=== PATIENT | female | born 1985 | race Hispanic/Latino ===

== ENCOUNTER 2017-08-14 18:37 | Emergency (ER) | payer OTHER ==
[2017-08-14 19:34] LABS: Band 4 % (5-11); Hemoglobin 11.5 g/dL (12.0-16.0); Lymphocytes 37 % (21-51); MDiff Complete? YES; Mean Corpuscular Hemoglobin 26.7 pg (27.0-31.0); Mean Corpuscular Volume 78.6 fl (81.0-99.0); Mean Platelet Volume 7.5 fL (7.4-10.4); Monocytes 7 % (0-10); Neutrophil 40 % (42-75); PLT Morphology Comment Appears Adequate; Platelet Count 301 thou/uL (130-400); RBC Distribution Width 15.9 % (11.5-14.5); Reactive Lymphocytes 12 % (0-10); Red Blood Cell (RBC) Count 4.31 mill/uL (4.20-5.40); White Blood Cell (WBC) Count 8.9 thou/uL (4.8-10.8)
[2017-08-14 19:37] LABS: Bilirubin Negative (Negative); Blood, Urine Negative (Negative); Clarity Clear (Clear); Glucose, Urine (Dipstick) Negative (Negative); Leukocyte Large (Negative); Nitrite Negative (Negative); Protein, Urine (Dipstick) Negative (Neg-Trace); Specific Gravity, Urine 1.015 (1.005-1.030); Urobilinogen 0.2 mg/dL (0.2-1.0)
[2017-08-14 19:39] LABS: RBC/HPF 0-3 HPF (0-3)
[2017-08-14 19:39] LABS: ALT (SGPT) 11 U/L (8-55); AST (SGOT) 15 U/L (5-34); Albumin 3.7 g/dL (3.5-5.0); Alkaline Phosphatase 58 U/L (40-150); Anion Gap 15 mmol/L (10-20); BUN (Urea Nitrogen) 5 mg/dL (7.0-18.7); Bilirubin, Total 0.4 mg/dL (0.2-1.2); Calc. Creatinine Clearance 0 mL/min (70-130); Calcium 9.6 mg/dL (7.8-10.44); Carbon Dioxide 23 mmol/L (22-29); Chloride 103 mmol/L (98-107); Estimated GFR-MDRD 88; Globulin 3.5 g/dL (2.4-3.5); Glucose 102 mg/dL (70-105); Potassium 3.6 mmol/L (3.5-5.1); Protein, Total 7.2 g/dL (6.0-8.3); Sodium 137 mmol/L (136-145)
[2017-08-14 19:40] LABS: Bacteria/HPF 2+ HPF (None Seen); Crystals/HPF 1+ AMORPH URATES HPF (Negative)
[2017-08-14] MEDS ORDERED: Acetaminophen 500 MG TAB ONE (19:41)
== END 2017-08-14 20:26 | disposition home or self-care (01) ==
LOC: SCSER 18:37
DX: O10.919 Unspecified pre-existing hypertension complicating pregnancy, unspecified trimester (principal); O99.352 Diseases of the nervous system complicating pregnancy, second trimester; G43.909 Migraine, unspecified, not intractable, without status migrainosus; O99.012 Anemia complicating pregnancy, second trimester; D57.3 Sickle-cell trait; Z3A.15 15 weeks gestation of pregnancy
CPT/HCPCS: 36415; 80053; 81003; 81015; 85025; 99284

== ENCOUNTER 2017-11-13 18:46 | Inpatient (IN) | payer OTHER ==
[2017-11-13 19:49] VITALS: BMI 26.9
[2017-11-13 21:03] LABS: Bilirubin Negative (Negative); Blood, Urine Moderate (Negative); Clarity CLEAR (Clear); Glucose, Urine (Dipstick) Negative (Negative); Leukocyte Negative (Negative); Nitrite Negative (Negative); Protein, Urine (Dipstick) 30 mg/dL (Neg-Trace)
[2017-11-13 21:05] LABS: Bacteria/HPF None Seen HPF (None Seen); Hyaline Casts/LPF 0-3 HYALINE CAST LPF (0-3 Hyaline); Pathc Cast-AUWi Flag 0.43 (0-2.49); Squamous Epithelial 0-3 HPF (0-3)
[2017-11-13] MEDS ORDERED: Lactated Ringer's 1,000 ML IV SCH (21:15)
--- NOTE | 2017-11-13 21:17 | PDOC.LDHP ---
Labor and Delivery H&P Chief complaint: other (Fever and UTI HX) HPI: CC: fever and recent UTI HX being RX with macrobid 32 yo at 28 weeks with fever and recent UTI DX. Saw Dr bagley yeterday with DX of UTI and given macrobid. She was concerned that the tDap was giving her fever. Good FM, No LOF, No VB Current gestational age (weeks): 28 Grav: 4 Para: 2 Current complications: none Abnormal US findings: No Current medications: pre-sonu vitamins, other (Macrobid) Previous surgical history: other (Gallbladder) Allergies/Adverse Reactions: Allergies Allergy/AdvReac Type Severity Reaction Status Date / Time promethazine HCl Allergy Verified 11/13/17 19:40 [From Phenergan] Social history: none - Physical Exam Vital signs reviewed and normal: yes General: NAD Heart: RRR Lungs: CTAB Abdomen: gravid Extremeties: no edema FHT: category 1 [place] contractions every: FHTS are tachy at 180s but no decels, no ctx - Assessment Fever and recent UTI HX, with UA "dirty", compatible for DX of pyelo in . Direct admit to Dr Bagley. - Plan Plan: observation in L&D (WE will admit for IV antibiotics but keep in L&D until tachycardia resolves. I have ordered urine and blood cultures, baseline CXR. IV Roscephin pending. Omar covering for Yudi.)
[2017-11-13] MEDS ORDERED: Acetaminophen 500 MG TAB PO SCH (21:30)
[2017-11-13 21:47] LABS: #Lymphocytes 1.6 thou/uL (1.20-3.40); #Monocytes 0.8 thou/uL (0.11-0.59); #Neutrophils 13.2 thou/uL (1.40-6.50); %Basophils 0.2 % (0.0-1.0); %Lymphocytes 10.2 % (21.0-51.0); %Monocytes 4.9 % (0.0-10.0); %Neutrophils 84.7 % (42.0-75.0); Hemoglobin 11.5 g/dL (12.0-16.0); Mean Corpuscular HGB CONC 35.3 g/dL (32.0-36.0); Mean Corpuscular Hemoglobin 30.8 pg (27.0-31.0); Mean Corpuscular Volume 87.4 fL (78.0-98.0); Platelet Count 264 thou/uL (130-400); RBC Distribution Width 13.2 % (11.5-14.5); Red Blood Cell (RBC) Count 3.73 mill/uL (4.20-5.40); White Blood Cell (WBC) Count 15.6 thou/uL (4.8-10.8)
[2017-11-13] MEDS: cefTRIAXone\\ROCEPHIN 2 GM in Sodium Chloride 0.9% 100 ML IVPB SCH (22:00)
[2017-11-13 22:09] LABS: ALT (SGPT) 11 U/L (8-55); AST (SGOT) 21 U/L (5-34); Albumin 3.3 g/dL (3.5-5.0); Alkaline Phosphatase 95 U/L (40-150); Anion Gap 13 mmol/L (10-20); BUN (Urea Nitrogen) Less than 4 mg/dL (7.0-18.7); Bilirubin, Total 1.6 mg/dL (0.2-1.2); Calc. Creatinine Clearance 129 mL/min (70-130); Calcium 8.6 mg/dL (7.8-10.44); Carbon Dioxide 21 mmol/L (22-29); Chloride 102 mmol/L (98-107); Estimated GFR-MDRD Greater than 90; Globulin 3.1 g/dL (2.4-3.5); Glucose 111 mg/dL (70-105); Protein, Total 6.4 g/dL (6.0-8.3); Sodium 133 mmol/L (136-145)
[2017-11-13 22:15] LABS: Potassium 2.9 mmol/L (3.5-5.1)
--- NOTE | 2017-11-13 22:35 | PDOC.EVN ---
Event Note - Event Note Event Note: Lab check: K 2.9...will supplement both po and IV
[2017-11-13] MEDS ORDERED: Potassium Chloride 10 MEQ in Premix Bag 1 BAG IVPB SCH (22:45)
[2017-11-13 23:57] LABS: Acetaminophen Less than 6.0 mcg/mL (10.0-30.0); Alcohol Less than 10 mg/dL (Less than 10); Salicylate Less than 8.0 mg/dL (15.0-30.0)
[2017-11-14] MEDS: Acetaminophen/Codeine 30-300mg Tablet PO PRN ×5 (03:13→14:07)
[2017-11-14 04:02] LABS: Lactic Acid 1.6 mmol/L (0.5-2.2)
[2017-11-14] MEDS: Lactated Ringer's 1,000 ML IV SCH ×3 (05:00→14:07)
[2017-11-14 08:26] LABS: #Lymphocytes 3.4 thou/uL (1.20-3.40); #Monocytes 1.4 thou/uL (0.11-0.59); #Neutrophils 9.4 thou/uL (1.40-6.50); %Basophils 0.1 % (0.0-1.0); %Eosinophils 0.1 % (0.0-10.0); %Lymphocytes 24.1 % (21.0-51.0); %Monocytes 9.8 % (0.0-10.0); %Neutrophils 65.9 % (42.0-75.0); Hemoglobin 10.2 g/dL (12.0-16.0); Mean Corpuscular HGB CONC 35.5 g/dL (32.0-36.0); Mean Corpuscular Hemoglobin 31.1 pg (27.0-31.0); Mean Corpuscular Volume 87.7 fL (78.0-98.0); Mean Platelet Volume 7.1 fL (7.4-10.4); Platelet Count 232 thou/uL (130-400); RBC Distribution Width 13.2 % (11.5-14.5); Red Blood Cell (RBC) Count 3.29 mill/uL (4.20-5.40); White Blood Cell (WBC) Count 14.3 thou/uL (4.8-10.8)
[2017-11-14] MEDS: Potassium Chloride 20 MEQ TAB PO SCH ×2 (08:30→16:50)
[2017-11-14 08:37] LABS: Anion Gap 10 mmol/L (10-20); BUN (Urea Nitrogen) Less than 4 mg/dL (7.0-18.7); Calc. Creatinine Clearance 159 mL/min (70-130); Calcium 8.3 mg/dL (7.8-10.44); Carbon Dioxide 22 mmol/L (22-29); Chloride 105 mmol/L (98-107); Estimated GFR-MDRD Greater than 90; Glucose 96 mg/dL (70-105); Sodium 134 mmol/L (136-145)
[2017-11-14 08:44] LABS: Potassium 2.8 mmol/L (3.5-5.1)
--- NOTE | 2017-11-14 09:11 | RAD ---
RADIOGRAPH CHEST 1 VIEW: HISTORY: 32-year-old female with fever. FINDINGS: There are no air space densities, pulmonary edema, pneumothorax, or cardiomegaly. The lateral costop hrenic angles are sharp. IMPRESSION: No acute cardiopulmonary findings. kartik POS: [facility]
[2017-11-14] MEDS: Potassium Chloride 40 MEQ in Sodium Chloride 0.45% 1,000 ML IV SCH (16:50)
[2017-11-14] MEDS: HYDROcodone/Acetaminophen 5/325 mg Tablet PO PRN (18:44)
[2017-11-14] MEDS: cefTRIAXone\\ROCEPHIN 2 GM in Sodium Chloride 0.9% 100 ML IVPB SCH (21:36)
[2017-11-15] MEDS: HYDROcodone/Acetaminophen 5/325 mg Tablet PO PRN (00:07)
[2017-11-15] MEDS: Lactated Ringer's 1,000 ML IV SCH ×2 (00:34→14:18)
[2017-11-15] MEDS: Potassium Chloride 40 MEQ in Sodium Chloride 0.45% 1,000 ML IV SCH ×2 (01:26→14:18)
[2017-11-15 05:49] LABS: Anion Gap 9 mmol/L (10-20); BUN (Urea Nitrogen) Less than 4 mg/dL (7.0-18.7); Calc. Creatinine Clearance 171 mL/min (70-130); Carbon Dioxide 21 mmol/L (22-29); Chloride 108 mmol/L (98-107); Estimated GFR-MDRD Greater than 90; Glucose 84 mg/dL (70-105); Potassium 3.9 mmol/L (3.5-5.1); Sodium 134 mmol/L (136-145)
[2017-11-15] MEDS ORDERED: Ibuprofen 800 MG TAB PO PRN (08:20)
[2017-11-15] MEDS ORDERED: Amoxicillin/Potassium Clav 875 MG TAB PO SCH (09:00)
[2017-11-15 12:11] VITALS: BP 114/73; TEMP 97.6
== END 2017-11-15 17:30 | disposition home health service (06) | DRG 775 ==
LOC: L&D/OP 18:46 → L&D 22:17 → 3SW 11-14 10:25
PROVIDERS: ADMIT Obstetrics & Gynecology; ATTEND Obstetrics & Gynecology
DX: O23.43 Unspecified infection of urinary tract in pregnancy, third trimester (principal); Z37.0 Single live birth; Z3A.28 28 weeks gestation of pregnancy; O26.93 Pregnancy related conditions, unspecified, third trimester; E87.6 Hypokalemia; R51 Headache
CPT/HCPCS: 36415; 71045; 80048; 80053; 80307; 81001; 83605; 85025; 87040; 87086; 99285; J0696; J3480; J7050

== ENCOUNTER 2018-01-17 19:28 | Day surgery (SDC) | payer OTHER ==
[2018-01-17 20:14] VITALS: BP 136/84; TEMP 98.7; BMI 29.3
--- NOTE | 2018-01-17 20:44 | PDOC.FPROB ---
FMR OB H&P: HPI - History of Present Illness Chief Complaint: Contractions Indentification: 32 year old History of Present Illness: 32 year at 37.2 wks presents with intermittent contractions and vaginal pressure since this afternoon. She denies vaginal bleeding, vaginal discharge, LoF. She endorses good movement. Primary Care Physician: Yudi FMR OB H&P: Current - Care : 4 Para: 2011 Gestational age: 37.2 wks FMR OB H&P: History - Past Medical History PMH: HTN Migraines Hx of chlamydia - OB History OB History: SAB x1 with D&C cHTN - RN CARE TRANSITION History RN CARE TRANSITION History: D&C - Surgical History Sx History: Cholecystectomy D&C - Social History Social History: Denies alcohol, tobacco, or drug use during . - Family History Family History: Noncontributory FMR OB H&P: Medications - Current Home Medications: Medication Instructions Recorded Confirmed Type Methyldopa 1 tab PO DAILY 11/13/17 01/17/18 History Nitrofurantoin Macrocrystal 100 mg PO DAILY 11/13/17 01/17/18 History [Nitrofurantoin] Allergies/Adverse Reactions: Allergies Allergy/AdvReac Type Severity Reaction Status Date / Time promethazine HCl Allergy Verified 11/13/17 19:40 [From Phenergan] FMR OB H&P: ROS - Review of Systems General: denies: fever/chills, weight/appetite/sleep changes Eyes: denies: vision changes ENT: denies: nasal congestion, sore throat Cardiovascular: denies: chest pain, palpitation, edema Respiratory: denies: cough, congestion, shortness of breath Gastrointestinal: denies: abdominal pain, nausea, vomiting Genitourinary (Female): reports: polyuria, vaginal pain, contractions. denies: dysuria, vaginal discharge, vaginal bleeding Musculoskeletal: denies: pain Hematologic/Lymphatic: denies: prolonged or excessive bleeding Psychological: denies: depression, anxiety FMR OB H&P: Vital Signs - Maternal Vital signs: Vital Signs - First Documented Temp Pulse Resp BP Pulse Ox 98.7 F 86 18 136/84 98 01/17/18 20:09 01/17/18 20:09 01/17/18 20:09 01/17/18 20:01/17/18 20:09 - Heart Tones Baseline: 125 Variability: moderate Acceleration: present Deceleration: absent Category: category 1 [place] contractions every: Irregular FMR OB H&P: Physical Exam - Physical Exam General: NAD, awake, alert and oriented HEENT: normocephalic and atraumatic, MMM, grossly normal vision, grossly normal hearing Heart: pulses present, no edema General: no respiratory distress Abdomen: soft, gravid, non-tender Musculoskeletal: pulses present Neurological: no tremor, no focal deficit Skin: no rash, capillary refill <2 seconds Psychiatric: intact recent and remote memory, good judgement and insight, normal mood and affect FMR OB H&P: A/P - Problem List (1) Intrauterine Status: Acute Code(s): Z34.90 - ENCNTR FOR SUPRVSN OF NORMAL , UNSP, UNSP TRIMESTER Assessment and Plan: 32 year old at 37.2 wks sIUP - Does not appear to be in labor - Cervical check 04/25/3 - Reactive NST - Few, irregular contractions on monitor - No leaking of fluid, vaginal bleeding, or vaginal discharge - d/c home with labor precautions cHTN - Continue home medications - BP 136/84 Hx SAB x1 - s/p D&C Disposition: Stable. D/c home with labor precautions. Discussion: Date/Time: 01/17/182042 This H&P was discussed with Dr. Colin who agrees with the above documentation and plan. Signature: Molly Linares, PGY-2
== END 2018-01-17 20:45 | disposition home health service (06) ==
LOC: L&D/OP 19:28
PROVIDERS: ATTEND Obstetrics & Gynecology
DX: O47.1 False labor at or after 37 completed weeks of gestation (principal); O10.913 Unspecified pre-existing hypertension complicating pregnancy, third trimester; Z3A.37 37 weeks gestation of pregnancy; Z79.899 Other long term (current) drug therapy; Z88.8 Allergy status to other drugs, medicaments and biological substances

== ENCOUNTER 2018-01-26 23:47 | Day surgery (SDC) | payer OTHER ==
[2018-01-27 00:20] VITALS: BMI 29.7
--- NOTE | 2018-01-27 01:19 | PRG ---
DATE OF SERVICE: 01/27/2018 TIME OF SERVICE: 0045 hours. PRESENTING COMPLAINT: Contractions. HISTORY OF PRESENT ILLNESS: Ms. Bloom presents with complaining of contractions. She has an EDC o f 02/07/2018 and placing her at 38 weeks gestation. She reports mostly 4 hours of contractions. No rupture of membranes, no vaginal bleeding, active fetus. 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 SAB x1. Blood type A positive, antibody negative, P ap negative, rubella immune, VDRL nonreactive. Hepatitis B, GC chlamydia negative, group B strep neg ative. Sickle trait positive. PAST MEDICAL HISTORY: Migraines and hypertension outside of . PAST SURGICAL HISTORY: D&C, cholecystectomy. ALLERGIES: PHENERGAN. MEDICATIONS: vitamins. SOCIAL HISTORY: Denies tobacco, alcohol, or drug use. FAMILY HISTORY: Noncontributory. REVIEW OF SYSTEMS: Noncontributory. PHYSICAL EXAMINATION: GENERAL: Black female, resting comfortably. VITAL SIGNS: Temperature 99.0, blood pressure 132/86, pulse 85, respirations 18. HEENT: Within normal limits. LUNGS: Clear to auscultation bilaterally. HEART: Regular rate and rhythm. ABDOMEN: Soft and nontender. FHTs 130s. PELVIC: Vulva without lesions. Vagina without discharge. Cervix 3, 50, -3, cephalic, bag of water intact. EXTREMITIES: Without clubbing, cyanosis or edema. monitoring was carried out for 30 minutes. The patient was having contractions approximately e very 10 minutes. She had a category 1 heart rate tracing, baseline 150s, positive acceleration s, no decelerations. IMPRESSION: Prodromal labor, no evidence of active labor, 38 weeks gestation. PLAN: Reassurance, ER precautions. The patient to keep scheduled followup with Dr. Bagley this week.
== END 2018-01-27 00:57 | disposition home or self-care (01) ==
LOC: L&D/OP 23:47
PROVIDERS: ATTEND Obstetrics & Gynecology
DX: O47.1 False labor at or after 37 completed weeks of gestation (principal); O99.013 Anemia complicating pregnancy, third trimester; D57.3 Sickle-cell trait; O99.353 Diseases of the nervous system complicating pregnancy, third trimester; G43.909 Migraine, unspecified, not intractable, without status migrainosus; O10.013 Pre-existing essential hypertension complicating pregnancy, third trimester; Z3A.38 38 weeks gestation of pregnancy; Z79.899 Other long term (current) drug therapy; Z88.8 Allergy status to other drugs, medicaments and biological substances
CPT/HCPCS: 99282

== ENCOUNTER 2018-02-05 05:04 | Inpatient (IN) | payer OTHER ==
[2018-02-05] MEDS ORDERED: Acetaminophen 500 MG TAB PO PRN (05:40)
[2018-02-05] MEDS ORDERED: Ondansetron PF 4 MG/2 ML Vial IVP PRN ×3 (05:40→18:58)
[2018-02-05] MEDS ORDERED: Butorphanol Tartrate 1 MG/ML VIAL SLOW IVP PRN (05:40)
[2018-02-05] MEDS ORDERED: NS w/ Oxytocin 10 units 500 ML IVPB SCH (05:45)
[2018-02-05] MEDS: Lactated Ringer's 1,000 ML IV SCH ×3 (05:50→14:54)
[2018-02-05 06:00] VITALS: BMI 30.2
[2018-02-05 06:08] LABS: Mean Corpuscular HGB CONC 34.5 g/dL (32.0-36.0); Mean Corpuscular Hemoglobin 30.3 pg (27.0-31.0); Mean Corpuscular Volume 87.8 fL (78.0-98.0); Mean Platelet Volume 7.7 fL (7.4-10.4); Platelet Count 318 thou/uL (130-400); RBC Distribution Width 12.7 % (11.5-14.5); Red Blood Cell (RBC) Count 3.96 mill/uL (4.20-5.40); White Blood Cell (WBC) Count 7.2 thou/uL (4.8-10.8)
[2018-02-05 06:48] LABS: Syphilis Antibody Nonreactive (Nonreactive); Syphilis Antibody Index 0.05 S/CO (<1.00 Non-Reactive)
[2018-02-05 06:49] LABS: HBSAg Index 0.17 S/CO (0-0.99)
[2018-02-05 07:22] LABS: Hep B Surf Ag NonReactive S/CO (NonReactive)
[2018-02-05] MEDS: hydrALAZINE 20 MG/ML VIAL SLOW IVP SCH ×5 (07:44→16:52)
[2018-02-05] MEDS ORDERED: Bupivacaine/Epinephrine 0.25% 30 ML VIAL ONE (11:00)
[2018-02-05] MEDS ORDERED: Adenosine 6 MG/2 ML VIAL ONE (11:11)
[2018-02-05] MEDS ORDERED: Fentanyl 4 mcg/Bup 0.1% Cadd 100 ML ONE (11:50)
[2018-02-05] MEDS ORDERED: Naloxone HCl 0.4 mg/ml Vial IVP PRN ×2 (13:02)
[2018-02-05] MEDS ORDERED: ePHEDrine/0.9% NaCl/PF SYRINGE 50 mg/10 ml SLOW IVP PRN (13:02)
[2018-02-05] MEDS ORDERED: Lactated Ringer's 500 ML IV PRN (13:02)
[2018-02-05] MEDS ORDERED: Eucerin (Mineral Oil/Petrolatum,White) 30 gm Jar TOP PRN (13:02)
[2018-02-05] MEDS ORDERED: Communication Order-Pharmacy FS SCH (13:15)
[2018-02-05] MEDS ORDERED: Fentanyl 4 mcg/Bupivacaine 0.1% Cassette 100 ML EPIDURAL SCH (13:15)
[2018-02-05] MEDS ORDERED: hydrALAZINE 20 MG/ML VIAL SLOW IVP PRN (14:16)
[2018-02-05] MEDS ORDERED: D5 LR 500 ML IV SCH (14:30)
[2018-02-05] MEDS ORDERED: Labetalol HCl 100 MG/20 ML VIAL ONE (14:44)
[2018-02-05] MEDS ORDERED: Labetalol HCl 100 MG/20 ML VIAL SLOW IVP PRN (14:46)
[2018-02-05] MEDS ORDERED: Labetalol 100 MG TAB PO SCH ×2 (15:00→21:00)
[2018-02-05] MEDS ORDERED: Adenosine 6 MG/2 ML VIAL IVP SCH (18:45)
[2018-02-05] MEDS ORDERED: Misoprostol 200 MCG TAB ONE (18:53)
[2018-02-05] MEDS ORDERED: Lanolin Ointment 7 GM TUBE TOP PRN (18:58)
[2018-02-05] MEDS ORDERED: Bisacodyl 10 MG SUPP PR PRN (18:58)
[2018-02-05] MEDS ORDERED: Adacel (T-DAP) 0.5 ML VIAL IM ONE (18:58)
[2018-02-05] MEDS ORDERED: Preparation H Ointment 28 GM TUBE PR PRN (18:58)
[2018-02-05] MEDS ORDERED: Promethazine HCl 25 MG/ML VIAL IM PRN (18:58)
[2018-02-05] MEDS ORDERED: diphenhydrAMINE 25 MG CAP PO PRN (18:58)
[2018-02-05] MEDS ORDERED: Zolpidem Tartrate 5 MG TAB PO PRN (18:58)
[2018-02-05] MEDS ORDERED: Acetaminophen/Codeine 30-300mg Tablet PO PRN ×2 (18:58)
[2018-02-05] MEDS ORDERED: Misoprostol 200 MCG TAB VAG PRN (18:58)
[2018-02-05] MEDS ORDERED: Milk Of Magnesia 30 ML UDCUP PO PRN (18:58)
[2018-02-05] MEDS ORDERED: NS / Oxytocin 40 units/1000ml 1,000 ML IV SCH (19:00)
[2018-02-05] MEDS ORDERED: Digoxin 0.5 MG/2 ML AMP SLOW IVP SCH (19:15)
[2018-02-05] MEDS ORDERED: Esmolol 2,500 MG/250 ML 250 ML IVPB SCH (19:15)
[2018-02-05 19:26] LABS: #Lymphocytes 1.4 thou/uL (1.20-3.40); #Monocytes 1.1 thou/uL (0.11-0.59); #Neutrophils 11.2 thou/uL (1.40-6.50); %Basophils 0.4 % (0.0-1.0); %Lymphocytes 10.1 % (21.0-51.0); %Monocytes 7.8 % (0.0-10.0); %Neutrophils 81.8 % (42.0-75.0); Hemoglobin 12.3 g/dL (12.0-16.0); Mean Corpuscular HGB CONC 34.3 g/dL (32.0-36.0); Mean Corpuscular Hemoglobin 30.4 pg (27.0-31.0); Mean Corpuscular Volume 88.8 fL (78.0-98.0); Mean Platelet Volume 7.7 fL (7.4-10.4); Platelet Count 299 thou/uL (130-400); RBC Distribution Width 12.8 % (11.5-14.5); Red Blood Cell (RBC) Count 4.04 mill/uL (4.20-5.40); White Blood Cell (WBC) Count 13.7 thou/uL (4.8-10.8)
--- NOTE | 2018-02-05 20:17 | CON ---
DATE OF CONSULTATION: 02/05/2018 CARDIOLOGY CONSULTATION REASON FOR CONSULTATION: Tachycardia. HISTORY OF PRESENT ILLNESS: Mrs. Bloom is a pleasant 32-year-old female who comes to the hospital for her delivery. She is 38 weeks . She successfully had her baby earlier today. At around noon, she had an epidural placed and her heart rate went from the 80s up to the 150 s almost immediately, thought to be in SVT. By the time of my arrival, she had already had her baby. This was her third , successful delivery and her heart rate was still in the 150s to 160s. EKG showed possible atrial tachycardia. She is asymptomatic from this. She denies any lightheaded ness, no syncope, no presyncope. PAST MEDICAL HISTORY: 1. Migraine headaches. 2. Hypertension. PAST SURGICAL HISTORY: 1. D and C in the past. 2. Cholecystectomy. OUTPATIENT MEDICATIONS: vitamins. ALLERGIES: PHENERGAN. SOCIAL HISTORY: No alcohol, tobacco or drugs. FAMILY HISTORY: Noncontributory. REVIEW OF SYSTEMS: A 12-point review of systems was done and is all negative unless stated in the hi story of present illness. PHYSICAL EXAMINATION: VITAL SIGNS: Temperature 97.2, pulse 152, blood pressure 148/72. GENERAL: Awake, alert, oriented x3, in no distress. HEENT: Normocephalic, atraumatic. NECK: Supple. LUNGS: Clear. CARDIOVASCULAR: S1, S2. No S3, S4. Tachycardic in the 150s. ABDOMEN: Soft. Positive bowel sounds. EXTREMITIES: 1+ edema. SKIN: Warm and dry. LABORATORY DATA: Reviewed. White count of 13, up from 7.2 earlier today, hemoglobin 12.3, which is stable from her one in the morning and platelet count of 299,000. Nonreactive hepatitis B surface an tigen and syphilis IgG and IgM antibodies. ASSESSMENT AND PLAN: 1. Atrial tachycardia, most likely she is stuck in the 150s. She had very clearcut P waves on the E KG; however, she is not acting like sinus tachycardia. Her epidural catheter was already removed. W e attempted to cardiovert her chemically with one dose of IV adenosine at 6 mg unsuccessfully, a seco nd dose of 12 mg made her heart rate go from 150 down to about 130 for about 2 or 3 seconds, then it came back up and a third dose of adenosine caused her to go down to the 120s and then back up to the 160s. We will plan on starting an esmolol drip. Hopefully, she will convert overnight and would not have to do anything else. However, if she is still in atrial tachycardia in the morning, we will pl an on doing a cardioversion under sedation from Anesthesiology. 2. I will give her one dose of digoxin IV and continue the esmolol drip. 3. She has some amount of bleeding from her recent delivery. We will defer to [facility] for this. 4. We will get metabolic profile to make sure that her electrolytes are within range. Thank you for letting us to participate in the care of your patient. We will follow.
[2018-02-05 20:37] LABS: ALT (SGPT) 8 U/L (8-55); AST (SGOT) 23 U/L (5-34); Albumin 2.9 g/dL (3.5-5.0); Alkaline Phosphatase 201 U/L (40-150); Anion Gap 12 mmol/L (10-20); BUN (Urea Nitrogen) 5 mg/dL (7.0-18.7); Bilirubin, Total 0.6 mg/dL (0.2-1.2); Calc. Creatinine Clearance 147 mL/min (70-130); Calcium 8.4 mg/dL (7.8-10.44); Carbon Dioxide 20 mmol/L (22-29); Chloride 107 mmol/L (98-107); Estimated GFR-MDRD Greater than 90; Glucose 110 mg/dL (70-105); Potassium 3.3 mmol/L (3.5-5.1); Protein, Total 5.9 g/dL (6.0-8.3); Sodium 136 mmol/L (136-145)
[2018-02-05] MEDS ORDERED: Potassium Chloride 20 MEQ TAB PO SCH (20:45)
[2018-02-05] MEDS: Docusate Calcium (SURFAK) 240 MG CAP PO SCH (21:15)
[2018-02-05] MEDS: Ibuprofen 800 MG TAB PO SCH (21:15)
[2018-02-06] MEDS: Ibuprofen 800 MG TAB PO SCH ×3 (05:43→21:48)
[2018-02-06] MEDS: Docusate Calcium (SURFAK) 240 MG CAP PO SCH ×2 (11:25→21:48)
[2018-02-06] MEDS: Prenatal Vitamin 1 TAB PO SCH (11:25)
[2018-02-06] MEDS: Ferrous Sulfate 325 MG TAB PO SCH ×2 (11:25→13:44)
--- NOTE | 2018-02-06 17:00 | EKG ---
Test Reason : Blood Pressure : / mmHG Vent. Rate : 125 BPM Atrial Rate : 125 BPM P-R Int : 154 ms QRS Dur : 078 ms QT Int : 308 ms P-R-T Axes : 059 019 054 degrees QTc Int : 444 ms Sinus tachycardia Nonspecific T wave abnormality Abnormal ECG No previous ECGs available Confirmed by DR. Ivana GREEN (3) on 02/06/2018 5:00:12 PM Referred By: Confirmed By:DR. Ivana GREEN
--- NOTE | 2018-02-06 17:02 | EKG ---
Test Reason : Blood Pressure : / mmHG Vent. Rate : 152 BPM Atrial Rate : 152 BPM P-R Int : 000 ms QRS Dur : 074 ms QT Int : 320 ms P-R-T Axes : 057 012 065 degrees QTc Int : 508 ms Sinus tachycardia Nonspecific ST and T wave abnormality Abnormal ECG When compared with ECG of 05-FEB-2018 14:55, (Unconfirmed) No significant change was found Confirmed by DR. Ivana GREEN (3) on 02/06/2018 5:01:53 PM Referred By: Confirmed By:DR. Ivana GREEN
--- NOTE | 2018-02-06 17:03 | EKG ---
Test Reason : STAT Blood Pressure : / mmHG Vent. Rate : 122 BPM Atrial Rate : 122 BPM P-R Int : 152 ms QRS Dur : 082 ms QT Int : 300 ms P-R-T Axes : 063 012 033 degrees QTc Int : 427 ms Sinus tachycardia Nonspecific ST-T changes Cannot rule out Anterior infarct , age undetermined Abnormal ECG When compared with ECG of 05-FEB-2018 17:22, (Unconfirmed) No significant change was found Confirmed by DR. Ivana GREEN (3) on 02/06/2018 5:03:10 PM Referred By: DEREK Confirmed By:DR. Iavna GREEN
--- NOTE | 2018-02-06 17:15 | EKG ---
Test Reason : Blood Pressure : / mmHG Vent. Rate : 081 BPM Atrial Rate : 081 BPM P-R Int : 136 ms QRS Dur : 084 ms QT Int : 354 ms P-R-T Axes : 063 021 043 degrees QTc Int : 411 ms Normal sinus rhythm with sinus arrhythmia Nonspecific T wave abnormality Abnormal ECG When compared with ECG of 05-FEB-2018 20:47, (Unconfirmed) Vent. rate has decreased BY 41 BPM Non-specific change in ST segment in Inferior leads Non-specific change in ST segment in Anterior leads Confirmed by DR. Ivana GREEN (3) on 02/06/2018 5:14:49 PM Referred By: MARY Confirmed By:DR. Ivana GREEN
--- NOTE | 2018-02-06 18:35 | PDOC.CTH ---
Cardiology Progress Note - Subjective She is doing better. Her HR went from the 130's down to the 80's overnight and has remained there off all rate limiting agents. - Objective Vital Signs Temp Pulse Resp BP Pulse Ox 02/06/18 18:01 97.8 F 88 20 143/93 H 02/06/18 12:38 104 H 157/86 H 02/06/18 12:17 100 02/06/18 11:40 97.6 F 104 H 20 177/94 H 100 02/06/18 10:00 20 02/06/18 08:00 98.5 F 98 Weight 176 lb 02/05/18 02/06/18 02/07/18 06:59 06:59 06:59 Intake Total 2682 150 Output Total 1550 425 Balance 1132 -275 - Physical Examination General/Neuro: alert & oriented x3, NAD Neck: no JVD present Lungs: CTA, unlabored respirations Heart: RRR Abdomen: NT/ND Extremities: + edema B - Telemetry Telemetry Rhythm: NSR - Labs Result Diagrams: 02/05/18 19:14 02/05/18 20:09 - Assessment/Plan 1. tachycardia, likely sinus tachycardia. Resolved now. 2. No evidence of SVT or atrial tachycardia for now. 3. S/P vaginal delivery PLAN: - May transfer back to post - No need to monitor on telemetry unless vitals change - Likely this was sinus tachycardia from the epidural as it slowly came down overnight and esmolol has bene off since 3:30 am and her HR has remained in the 80's looking like sinus rhythm. - Will not need BB or any anti arrhythmic on discharge. - Follow up in the office in 4 weeks.
[2018-02-06] MEDS ORDERED: Labetalol 100 MG TAB PO SCH (23:15)
[2018-02-07] MEDS: Ferrous Sulfate 325 MG TAB PO SCH ×2 (08:19→18:07)
[2018-02-07] MEDS: Prenatal Vitamin 1 TAB PO SCH (08:25)
[2018-02-07] MEDS: Labetalol 100 MG TAB PO SCH ×2 (08:25→23:02)
[2018-02-07] MEDS: Docusate Calcium (SURFAK) 240 MG CAP PO SCH ×2 (08:25→23:01)
[2018-02-07] MEDS: Ibuprofen 800 MG TAB PO SCH ×3 (08:26→23:01)
[2018-02-07] MEDS: Acetaminophen 500 MG TAB PO PRN ×2 (10:47→18:21)
[2018-02-08] MEDS: Ibuprofen 800 MG TAB PO SCH ×3 (05:35→22:07)
[2018-02-08] MEDS: Ferrous Sulfate 325 MG TAB PO SCH ×2 (08:28→15:02)
[2018-02-08] MEDS: Prenatal Vitamin 1 TAB PO SCH (08:29)
[2018-02-08] MEDS: Docusate Calcium (SURFAK) 240 MG CAP PO SCH ×3 (08:29→22:07)
[2018-02-08] MEDS: Labetalol 100 MG TAB PO SCH ×2 (09:14→22:06)
[2018-02-08] MEDS: Acetaminophen 500 MG TAB PO PRN (11:59)
[2018-02-08 13:04] LABS: Bilirubin Negative (Negative); Blood, Urine Large (Negative); Clarity CLEAR (Clear); Glucose, Urine (Dipstick) Negative (Negative); Leukocyte Small (Negative); Nitrite Positive (Negative); Protein, Urine (Dipstick) Trace mg/dL (Neg-Trace); Specific Gravity, Urine 1.012 (1.002-1.036); Urobilinogen 0.2 mg/dL (0.2-1.0)
[2018-02-08 13:06] LABS: Bacteria/HPF 4+ HPF (None Seen); Hyaline Casts/LPF 0-3 HYALINE CAST LPF (0-3 Hyaline); Squamous Epithelial 0-3 HPF (0-3)
[2018-02-08 13:13] LABS: Renal Epithelial None Seen HPF (0-3); Transitional Epithelial NONE SEEN HPF (0-3)
[2018-02-08 14:02] LABS: #Basophils 0.1 thou/uL (0.0-0.2); #Lymphocytes 1.7 thou/uL (1.20-3.40); #Monocytes 0.8 thou/uL (0.11-0.59); #Neutrophils 7.7 thou/uL (1.40-6.50); %Basophils 0.5 % (0.0-1.0); %Lymphocytes 16.6 % (21.0-51.0); %Monocytes 8.1 % (0.0-10.0); %Neutrophils 74.8 % (42.0-75.0); Hemoglobin 10.3 g/dL (12.0-16.0); Mean Corpuscular HGB CONC 32.8 g/dL (32.0-36.0); Mean Corpuscular Hemoglobin 29.7 pg (27.0-31.0); Mean Corpuscular Volume 90.5 fL (78.0-98.0); Mean Platelet Volume 7.6 fL (7.4-10.4); Platelet Count 261 thou/uL (130-400); Red Blood Cell (RBC) Count 3.49 mill/uL (4.20-5.40); White Blood Cell (WBC) Count 10.3 thou/uL (4.8-10.8)
--- NOTE | 2018-02-08 14:25 | RAD ---
CHEST 2 VIEWS: Date: 02/08/18 HISTORY: fever. COMPARISON: Radiograph from 2010. FINDINGS: The lungs are clear. No pneumothorax or effusion. Cardiac silhouette and mediastinal contours within normal limits. IMPRESSION: No acute intrathoracic abnormality. POS: [facility]
[2018-02-08] MEDS: Sulfameth/Trimethoprim DS 800-160mg TAB PO SCH (16:44)
[2018-02-08] MEDS: Acetaminophen 325 MG TAB PO PRN ×2 (17:17→22:06)
[2018-02-09] MEDS: Acetaminophen 325 MG TAB PO PRN ×2 (02:20→06:04)
[2018-02-09] MEDS: Ibuprofen 800 MG TAB PO SCH ×3 (06:04→21:05)
[2018-02-09] MEDS: Sulfameth/Trimethoprim DS 800-160mg TAB PO SCH ×2 (06:56→21:22)
[2018-02-09] MEDS ORDERED: Lidocaine 1% PF 5 ML VIAL FS SCH (08:00)
[2018-02-09] MEDS ORDERED: cefTRIAXone\\ROCEPHIN 1 GM VIAL IM SCH (08:00)
[2018-02-09] MEDS: Prenatal Vitamin 1 TAB PO SCH (08:54)
[2018-02-09] MEDS: Docusate Calcium (SURFAK) 240 MG CAP PO SCH ×2 (08:54→21:19)
[2018-02-09] MEDS: Ferrous Sulfate 325 MG TAB PO SCH ×2 (08:54→17:49)
[2018-02-09] MEDS: Labetalol 100 MG TAB PO SCH ×2 (10:36→21:19)
[2018-02-10] MEDS: Ibuprofen 800 MG TAB PO SCH (05:52)
[2018-02-10] MEDS: Ferrous Sulfate 325 MG TAB PO SCH (08:29)
[2018-02-10] MEDS: Prenatal Vitamin 1 TAB PO SCH (09:57)
[2018-02-10] MEDS: Labetalol 100 MG TAB PO SCH (09:57)
[2018-02-10] MEDS: Docusate Calcium (SURFAK) 240 MG CAP PO SCH (09:57)
[2018-02-10] MEDS: Sulfameth/Trimethoprim DS 800-160mg TAB PO SCH (09:57)
[2018-02-10 11:38] VITALS: BP 108/67; TEMP 97.7
== END 2018-02-10 14:40 | disposition home or self-care (01) | DRG 807 ==
LOC: L&D 05:04 → CCU 19:46 → 3SE 02-06 12:17
PROVIDERS: ADMIT Obstetrics & Gynecology; ATTEND Obstetrics & Gynecology
PROC: 10D07Z6 Extraction of Products of Conception, Vacuum, Via Natural or Artificial Opening (ICD-10-PCS; principal; 2018-02-05)
PROC: 10907ZC Drainage of Amniotic Fluid, Therapeutic from Products of Conception, Via Natural or Artificial Opening (ICD-10-PCS; 2018-02-05)
PROC: 3E033VJ Introduction of Other Hormone into Peripheral Vein, Percutaneous Approach (ICD-10-PCS; 2018-02-05)
DX: O75.4 Other complications of obstetric surgery and procedures (principal); Z37.0 Single live birth; Z3A.39 39 weeks gestation of pregnancy; O16.4 Unspecified maternal hypertension, complicating childbirth; O86.20 Urinary tract infection following delivery, unspecified; O74.6 Other complications of spinal and epidural anesthesia during labor and delivery; R00.0 Tachycardia, unspecified
CPT/HCPCS: 36415; 51702; 71046; 80053; 81003; 81015; 85025; 85027; 86780; 86850; 86900; 86901; 87040; 87077; 87086; 87149; 87186; 87340; 90715; 93005; 93010; 93306; J0153; J0360; J0696; J1160; J2001

== ENCOUNTER 2018-06-22 13:40 | Emergency (ER) | payer OTHER ==
[2018-06-22] MEDS ORDERED: Fluorescein Opthalmic Strip ONE (13:57)
[2018-06-22] MEDS ORDERED: Proparacaine 0.5% Opth 15 ML BOT ONE (13:57)
== END 2018-06-22 14:25 | disposition home or self-care (01) ==
LOC: SCSER 13:40
DX: S05.02XA Injury of conjunctiva and corneal abrasion without foreign body, left eye, initial encounter (principal); H10.9 Unspecified conjunctivitis; I10 Essential (primary) hypertension; G43.909 Migraine, unspecified, not intractable, without status migrainosus; Z79.899 Other long term (current) drug therapy; X58.XXXA Exposure to other specified factors, initial encounter
CPT/HCPCS: 99283

== ENCOUNTER 2018-12-23 18:19 | Emergency (ER) | payer BC, OTHER | END 2018-12-23 19:15 | disposition home or self-care (01) | LOC: SCSER 18:19 | DX: J34.89 Other specified disorders of nose and nasal sinuses (principal); I10 Essential (primary) hypertension; G43.909 Migraine, unspecified, not intractable, without status migrainosus; Z79.899 Other long term (current) drug therapy | CPT/HCPCS: 99283 ==